=== PATIENT | female | born 1950 | race Caucasian/White ===

== ENCOUNTER → 2016-12-09 | Outpatient (CLI) | payer OTHER | LOC: FIMAGING 12:01 | PROVIDERS: ATTEND Emergency Medicine | DX: S73.191A Other sprain of right hip, initial encounter (principal); M16.0 Bilateral primary osteoarthritis of hip; M25.451 Effusion, right hip; M51.36 Other intervertebral disc degeneration, lumbar region; M47.896 Other spondylosis, lumbar region ==

== ENCOUNTER → 2017-06-20 | Outpatient (CLI) | payer OTHER | LOC: FIMAGING 09:56 | PROVIDERS: ATTEND Obstetrics & Gynecology | DX: Z12.31 Encounter for screening mammogram for malignant neoplasm of breast (principal) | CPT/HCPCS: G0202 ==

== ENCOUNTER → 2018-07-24 | Outpatient (CLI) | payer OTHER | LOC: FIMAGING 09:24 | PROVIDERS: ATTEND Obstetrics & Gynecology | DX: Z12.31 Encounter for screening mammogram for malignant neoplasm of breast (principal) ==

== ENCOUNTER → 2018-08-23 | Outpatient (CLI) | payer OTHER | LOC: FIMAGING 10:10 | PROVIDERS: ATTEND Orthopaedic Surgery | DX: Z01.818 Encounter for other preprocedural examination (principal); M16.0 Bilateral primary osteoarthritis of hip ==

== ENCOUNTER 2018-09-10 10:06 | Inpatient (IN) | payer OTHER ==
--- NOTE | 2018-09-10 06:29 | PDIAF ---
- Diagnosis Diagnosis: right hip djd Code Status: Full Code - Medication Management Discharge Medications: electronically signed and located in the Home Medication List. - Orders Services needed: Home Care, Physical Therapy Home Care Face to Face: I certify that this patient was under my care and that I had the required pohv-dj-hseh encounter meeting the encounter requirements on the discharge day. My findings support the fact that the patient is homebound as defined in Home Care Face to Face Continued: CMS Chapter 7 Medicare Benefits Manual 30.1.1 , The condition of the patient is such that there exists a normal inability to leave home and consequently, leaving home would require a considerable and taxing effort. Diet Recommendation: no restrictions on diet Diet Texture: Regular Texture Diet Additional Instructions: TOTAL JOINT ARTHROPLASTY DISCHARGE INSTRUCTIONS 1. Your surgeon follows the [facility] protocol for reducing your risk of DVT (blood clots) following surgery. Medication will be ordered to prevent blood clots. A sudden increase in calf pain and/or swelling could indicate a blood clot in your leg. If this occurs, please call your surgeon or his/her cosmetic sales assistant. An ultrasound of the leg may be necessary to diagnose a blood clot. If you have conditions that make you a higher risk for blood clots, your surgeon may use more aggressive ways to prevent them. Notify your surgeon if you think you are a high risk for blood clots. 2. Wear your white surgical stockings (KYLER hose) for 2 weeks. This decreases your swelling and may help prevent blood clots. It is ok to remove KYLER hose at night time to give your legs a break. 3. Swelling and bruising in the surgical leg is common. If you feel that it is excessive, please notify your surgeon. 4. Elevate your surgical leg with the ankle above the hip several times every day. Please keep the leg straight when you elevate by putting pillows under your foot. Do not put pillows under your knee. This will make being able to fully straighten more difficult. This is uncomfortable, but try to do it as much as possible. 5. For total knee replacements use compressive wrap on your knee for 3-5 days after surgery, then you can discontinue it. 6. Use a walker or crutches for 1-2 weeks. Progress your weight-bearing as tolerated. You may start to use a cane when you feel stable and safe. 7. You will receive physical therapy instructions in the hospital. Continue those exercises at home. There are additional exercises in the total joint booklet you were given before surgery. Outpatient physical therapy will begin 7- 10 days after surgery. Please schedule this in advance. 8. Use ice on your knee at least 3-5 times every day for 30 minutes. This helps reduce pain and swelling. Also use it at night before falling asleep. 9. Leave your surgical dressing in place for 2 weeks. Your dressing is water resistant, but not waterproof. Cover it with Saran Wrap or Kxtxx-x-Lcte before showering. You may shower as soon as you feel safe entering a shower. If you notice bleeding from your incision 2 or 3 days after surgery, please notify your surgeon. 10. Due to narcotics, decreased activity and altered diet, most patients experience constipation after surgery. Use czqq-dde-ykneikn stool softeners while you are on narcotics. 11. You may drive a car when you are comfortable bearing weight, have good muscular control of your leg and are off narcotics. This usually occurs 2-4 weeks after surgery, depending on which leg was operated on. 12. If there are questions not addressed here, please refer the [facility] book given for more information. If you still have questions, please contact your surgeon s office. 13. If you have a life-threatening emergency, please call 911 and go to the emergency room immediately. For non-life threatening emergencies, please call your physicians office for advice before going to the emergency room. - Follow Up Care Current Providers and Referrals: Marvin Zarate MD [Primary Care Provider] - Elio Fox MD [Medical Doctor] -
--- NOTE | 2018-09-10 06:29 | PDHPUP ---
History & Physical Update H&P update statement: This history and physical update is based on an assessment of the patient which was completed after admission or registration (within 24 hours), but prior to the surgery/procedure. H&P update: no change in patient's condition since H&P completed
[2018-09-10] MEDS ORDERED: LR 1,000 ML IV ONE (11:03)
[2018-09-10] MEDS ORDERED: PROPOFOL/EMULSION 500 MG/50 ML BOTTLE IV ONE (11:47)
[2018-09-10] MEDS ORDERED: LIDOCAINE 2% 5 ML SDV ONE (11:49)
[2018-09-10] MEDS ORDERED: TRANEXAMIC ACID 1,000 MG in NS 100 ML IV ONE (12:00)
[2018-09-10] MEDS ORDERED: ACETAMINOPHEN 325 MG TAB PO ONE (12:00)
[2018-09-10] MEDS ORDERED: ROPIVACAINE 0.2% 80 MG, EPINEPHrine 0.2 MG, KETOROLAC TROMETHAMINE 30 MG, morphINE 10 M... IU ONE (12:00)
[2018-09-10] MEDS ORDERED: FAMOTIDINE 20 MG TAB PO ONE (12:00)
[2018-09-10] MEDS ORDERED: ceFAZolin 2 GM/DEXTROSE 100 ML IV ONE (12:00)
[2018-09-10] MEDS ORDERED: ceFAZolin 1 GM/5 ML SYR ONE (12:05)
[2018-09-10] MEDS ORDERED: BUPIVACAINE/DEXTROSE 7.5MG/ML 2 ML SPINAL AMP SP ONE (12:24)
[2018-09-10] MEDS ORDERED: MIDAZOLAM 2 MG/2 ML VIAL ONE ×2 (12:53→13:00)
[2018-09-10] MEDS ORDERED: MIDAZOLAM 2 MG/2 ML VIAL IVP ONE (12:53)
--- NOTE | 2018-09-10 12:54 | PDANEPAE ---
ANE History of Present Illness right MARIELOS ANE Past Medical History - Cardiovascular History Hx Hypertension: No Hx Arrhythmias: No Hx Chest Pain: No Hx Coronary Artery / Peripheral Vascular Disease: No Hx CHF / Valvular Disease: No Hx Palpitations: No - Pulmonary History Hx COPD: No Hx Asthma/Reactive Airway Disease: No Hx Recent Upper Respiratory Infection: No Hx Oxygen in Use at Home: No Hx Sleep Apnea: No Sleep Apnea Screening Result - Last Documented: Negative - Neurologic History Hx Cerebrovascular Accident: No Hx Seizures: No Hx Dementia: No - Endocrine History Hx Diabetes: No - Renal History Hx Renal Disorders: No - Liver History Hx Hepatic Disorders: No - Neurological & Psychiatric Hx Hx Neurological and Psychiatric Disorders: No - Cancer History Hx Cancer: No - Congenital Disorder History Hx Congenital Disorders: No - GI History Hx Gastrointestinal Disorders: No - Other Health History Other Health History: none - Chronic Pain History Chronic Pain: No - Surgical History Prior Surgeries: bilat oophorectomy. /d&c's ANE Review of Systems Review of systems is: negative Review of Systems: - Exercise capacity METS (RN): 5 METS ANE Patient History - Allergies Allergies/Adverse Reactions: Sulfa (Sulfonamide Antibiotics) Allergy (Verified 09/10/18 11:22) high fevers - Home Medications Home medications: home medication list seen and reviewed Home Medications: NK [No Known Home Meds] 08/27/18 [Last Taken Unknown] - NPO status NPO Since - Liquids (Date): 09/10/18 NPO Since - Liquids (Time): 09:15 NPO Since - Solids (Date): 09/09/18 NPO Since - Solids (Time): 19:00 - Anes Hx Anes Hx: awareness under anesthesia - Smoking Hx Smoking Status: Former smoker - Alcohol Use Alcohol Use: None - Family Anes Hx Family Hx Anesthesia Complications: none ANE Labs/Vital Signs - Vital Signs Blood Pressure: 120/80 Heart Rate: 86 Respiratory Rate: 18 O2 Sat (%): 94 Height: 167.64 cm Weight: 65.771 kg ANE Physical Exam - Airway Neck exam: FROM Mallampati Score: Class 2 Mouth exam: normal dental/mouth exam - Pulmonary Pulmonary: no respiratory distress - Cardiovascular Cardiovascular: regular rate and rhythym - ASA Status ASA Status: II ANE Anesthesia Plan Anesthesia Plan: spinal
[2018-09-10] MEDS ORDERED: fentaNYL 100 MCG/2 ML INJ ONE (13:01)
[2018-09-10] MEDS ORDERED: ePHEDrine SULFATE 25 MG/5 ML SYR ONE (13:23)
[2018-09-10] MEDS ORDERED: ONDANSETRON 4 MG/2 ML VIAL IVP PRN ×2 (13:41→14:33)
[2018-09-10] MEDS ORDERED: HYDROCODONE/APAP 5/325 TAB PO PRN (13:41)
[2018-09-10] MEDS ORDERED: PROMETHAZINE HCL 25 MG/ML INJ IVP PRN ×2 (13:41→14:33)
[2018-09-10] MEDS ORDERED: HYDROmorphONE/DILAUDID 2 MG/ML INJ IVP PRN (13:41)
[2018-09-10] MEDS ORDERED: LR 500 ML IV PRN (13:41)
[2018-09-10] MEDS ORDERED: DIAZEPAM 5 MG/ML 1 ML SYR IVP PRN (13:41)
[2018-09-10] MEDS ORDERED: NALOXONE HCL 0.4 MG/ML INJ IVP PRN (13:41)
[2018-09-10] MEDS ORDERED: oxyCODONE IR 5 MG TAB PO PRN (13:41)
[2018-09-10] MEDS ORDERED: ACETAMINOPHEN 500 MG TAB PO PRN (13:41)
[2018-09-10] MEDS ORDERED: fentaNYL 100 MCG/2 ML INJ IVP PRN (13:41)
[2018-09-10] MEDS ORDERED: ALBUTEROL 3 ML DEYVIAL IH PRN (13:41)
--- NOTE | 2018-09-10 13:41 | POSTANESTH ---
Post Anesthetic Evaluation Cardiovascular Status: Normal, Stable Respiratory Status: Normal, Stable Level of Consciousness/Mental Status: Can Participate in Eval, Alert and Oriented Pain Control: Adequate, Prn Tx Ordered Nausea/Vomiting Control: Adequate, Prn Tx Ordered Complications Possibly Related to Anesthesia: None Noted
[2018-09-10] MEDS ORDERED: PHENYLEPHRINE HCL 100 MCG/ML SYR ONE ×2 (14:26)
[2018-09-10] MEDS ORDERED: PROMETHAZINE HCL 25 MG SUPPR PR PRN (14:33)
[2018-09-10] MEDS ORDERED: ONDANSETRON DISINTEGRATING 4 MG TAB PO PRN (14:33)
[2018-09-10] MEDS ORDERED: MAGNESIUM HYDROXIDE 30 ML UDCUP PO PRN (14:33)
[2018-09-10] MEDS ORDERED: POLYETHYLENE GLYCOL 3350 17 GM PKT PO PRN (14:33)
[2018-09-10] MEDS ORDERED: METOCLOPRAMIDE 10 MG/2 ML VIAL IVP PRN (14:33)
[2018-09-10] MEDS ORDERED: TEMAZEPAM 15 MG CAP PO PRN (14:33)
[2018-09-10] MEDS ORDERED: BISACODYL 10 MG SUPP PR PRN (14:33)
[2018-09-10] MEDS ORDERED: CYCLOBENZAPRINE 10 MG TAB PO PRN (14:33)
[2018-09-10] MEDS ORDERED: diphenhydrAMINE 25 MG CAP PO PRN (14:33)
[2018-09-10] MEDS ORDERED: LACTULOSE 20 GM/30 ML UDCUP PO PRN (14:33)
[2018-09-10] MEDS ORDERED: DIPHENOXYLATE/ATROPINE LOMOTIL 1 TAB PO PRN (14:33)
--- NOTE | 2018-09-10 14:33 | POSTOPPROG ---
Post Op Note Date of Operation: 09/10/18 Surgeon: Elio Fox Bank Consultant: dov Anesthesiologist: govind Anesthesia: Spinal Pre-op Diagnosis: right hip djd Post-op Diagnosis: same Indication: same Procedure: right troy Inf/Abcess present in the surg proc area at time of surgery?: No Depth: Deep Incisional (Fascial) EBL: 100-500 Drains: Hemovac
--- NOTE | 2018-09-10 15:39 | PDMN ---
Medical Necessity Medical necessity[place] [facility] [place]thro[place]: 68 yo s/p R MARIELOS, [facility] IP only
[2018-09-10] MEDS: LR 1,000 ML IV SCH (16:39)
[2018-09-10] MEDS: ACETAMINOPHEN 325 MG TAB PO SCH ×2 (17:41→23:12)
[2018-09-10] MEDS: oxyCODONE IR 5 MG TAB PO PRN ×2 (17:41→20:28)
[2018-09-10] MEDS: FAMOTIDINE 20 MG TAB PO SCH (20:17)
[2018-09-10] MEDS: ASPIRIN 325 MG TAB PO SCH (20:17)
[2018-09-10] MEDS: SENNOSIDES/DOCUSATE SODIUM TAB PO SCH (20:17)
[2018-09-10] MEDS: ceFAZolin 2 GM/DEXTROSE 100 ML IV SCH (20:17)
[2018-09-10] MEDS: TRANEXAMIC ACID 650 MG TAB PO SCH (23:12)
[2018-09-11] MEDS: ceFAZolin 2 GM/DEXTROSE 100 ML IV SCH (04:35)
[2018-09-11] MEDS: ACETAMINOPHEN 325 MG TAB PO SCH ×2 (05:23→12:03)
[2018-09-11] MEDS: TRANEXAMIC ACID 650 MG TAB PO SCH ×2 (05:23→14:18)
--- NOTE | 2018-09-11 07:53 | PDIAF ---
- Diagnosis Diagnosis: right hip djd Code Status: Full Code - Medication Management Discharge Medications: electronically signed and located in the Home Medication List. - Orders Services needed: Home Care, Physical Therapy Home Care Face to Face: I certify that this patient was under my care and that I had the required nrqr-ur-oalf encounter meeting the encounter requirements on the discharge day. My findings support the fact that the patient is homebound as defined in Home Care Face to Face Continued: CMS Chapter 7 Medicare Benefits Manual 30.1.1 , The condition of the patient is such that there exists a normal inability to leave home and consequently, leaving home would require a considerable and taxing effort. Diet Recommendation: no restrictions on diet Diet Texture: Regular Texture Diet Additional Instructions: TOTAL JOINT ARTHROPLASTY DISCHARGE INSTRUCTIONS 1. Your surgeon follows the [facility] protocol for reducing your risk of DVT (blood clots) following surgery. Medication will be ordered to prevent blood clots. A sudden increase in calf pain and/or swelling could indicate a blood clot in your leg. If this occurs, please call your surgeon or his/her commissary assistant. An ultrasound of the leg may be necessary to diagnose a blood clot. If you have conditions that make you a higher risk for blood clots, your surgeon may use more aggressive ways to prevent them. Notify your surgeon if you think you are a high risk for blood clots. 2. Wear your white surgical stockings (KYLER hose) for 2 weeks. This decreases your swelling and may help prevent blood clots. It is ok to remove KYLER hose at night time to give your legs a break. 3. Swelling and bruising in the surgical leg is common. If you feel that it is excessive, please notify your surgeon. 4. Elevate your surgical leg with the ankle above the hip several times every day. Please keep the leg straight when you elevate by putting pillows under your foot. Do not put pillows under your knee. This will make being able to fully straighten more difficult. This is uncomfortable, but try to do it as much as possible. 5. For total knee replacements use compressive wrap on your knee for 3-5 days after surgery, then you can discontinue it. 6. Use a walker or crutches for 1-2 weeks. Progress your weight-bearing as tolerated. You may start to use a cane when you feel stable and safe. 7. You will receive physical therapy instructions in the hospital. Continue those exercises at home. There are additional exercises in the total joint booklet you were given before surgery. Outpatient physical therapy will begin 7- 10 days after surgery. Please schedule this in advance. 8. Use ice on your knee at least 3-5 times every day for 30 minutes. This helps reduce pain and swelling. Also use it at night before falling asleep. 9. Leave your surgical dressing in place for 2 weeks. Your dressing is water resistant, but not waterproof. Cover it with Saran Wrap or Ryyuo-k-Hrla before showering. You may shower as soon as you feel safe entering a shower. If you notice bleeding from your incision 2 or 3 days after surgery, please notify your surgeon. 10. Due to narcotics, decreased activity and altered diet, most patients experience constipation after surgery. Use pvdx-njy-mzdytrn stool softeners while you are on narcotics. 11. You may drive a car when you are comfortable bearing weight, have good muscular control of your leg and are off narcotics. This usually occurs 2-4 weeks after surgery, depending on which leg was operated on. 12. If there are questions not addressed here, please refer the [facility] book given for more information. If you still have questions, please contact your surgeon s office. 13. If you have a life-threatening emergency, please call 911 and go to the emergency room immediately. For non-life threatening emergencies, please call your physicians office for advice before going to the emergency room. - Follow Up Care Current Providers and Referrals: Marvin Zarate MD [Primary Care Provider] - Elio Fox MD [Medical Doctor] -
--- NOTE | 2018-09-11 07:54 | SOAPPROG ---
SOAP Progress Note Assessment/Plan: Assessment: s/p troy Plan:stable d/c home after cleared by pt dvt precautions reviewed f/u at two weeks 09/11/18 07:53 Subjective: doing well mild pain only no cp or sob monique po Objective: Vital Signs Temp Pulse Resp BP Pulse Ox 36.6 C 77 16 95/47 L 96 09/11/18 04:39 09/11/18 04:39 09/11/18 04:39 09/11/18 04:39 09/11/18 04:39 Laboratory Results 09/11/18 04:35 09/10/18 09/11/18 09/12/18 05:59 05:59 05:59 Intake Total 3325 Output Total 1325 Balance 2000 dressing intact intact pf, df, ehl toes warm and pink neg homans toño xrays anatomic, no fx or lucency ICD10 Worksheet Patient Problems: Problems Problem Status Onset Hip arthritis Acute - ICD10 Problem Qualifiers (1) Hip arthritis
[2018-09-11] MEDS: SENNOSIDES/DOCUSATE SODIUM TAB PO SCH (08:46)
[2018-09-11] MEDS: FAMOTIDINE 20 MG TAB PO SCH (08:46)
[2018-09-11] MEDS: ASPIRIN 325 MG TAB PO SCH (08:46)
[2018-09-11] MEDS: oxyCODONE IR 5 MG TAB PO PRN (08:47)
[2018-09-11] MEDS: LR 1,000 ML IV SCH (08:51)
--- NOTE | 2018-09-11 10:56 | ASMTDCNOTE ---
Case Management Discharge Discharge Order Complete? Answers: Yes Patient to Obtain Answers: Independently Medications Transportation Arranged Answers: Family/Friends Family Notified Answers: Yes Discharge Comments Notes: Patient discharged home with [facility] PT. Son to transport home. Date Signed: 09/11/2018 10:55 AM Electronically Signed By:Shruthi Gallo RN
--- NOTE | 2018-09-11 10:56 | ASMTLACE ---
JOSE Length of stay for Answers: 1 day current admission Acuity / Level of Answers: Yes Care: Did the patient have an inpatient admission? # of Emergency department Answers: 0 visits in the last 6 months Score: 4 Date Signed: 09/11/2018 10:55 AM Electronically Signed By:Shruthi Gallo RN
[2018-09-11 11:15] VITALS: BP 101/48
[2018-09-11] MEDS ORDERED: HYDROCODONE/APAP 5/325 TAB ONE (12:50)
[2018-09-11] MEDS ORDERED: HYDROCODONE/APAP 5/325 TAB PO PRN (12:52)
--- NOTE | 2018-09-12 07:19 | GDS ---
[f rep st] DISCHARGE SUMMARY ADMISSION DIAGNOSIS: Right hip degenerative joint disease. DISCHARGE DIAGNOSIS: Right hip degenerative joint disease. PROCEDURE: Right total hip arthroplasty. HISTORY OF PRESENT ILLNESS: The patient is a 68-year-old woman with end-stage arthritis to her right hip. She presents for elective right total hip arthroplasty. HOSPITAL COURSE: The patient was admitted overnight after uncomplicated total hip arthroplasty. She tolerated the procedure well. She quickly progressed with physical therapy. At the time of dischar ge, she is tolerating an oral diet. Pain is well controlled on oral medicines. She is voiding witho ut difficulty. Dressing is clean, dry, and intact. No calf swelling or tenderness. X-rays are stab le with anatomic alignment, concentric reduction. DISCHARGE ACTIVITY: Weightbearing as tolerated. Anterior hip precautions. Keep the dressing clean, dry, and intact. FOLLOWUP: 2 weeks. Seek attention for increasing redness, swelling, drainage, discharge, or other f ocal complaints. DISCHARGE MEDICATIONS: Osgood 5/325 one to two every 6 hours p.r.n. pain, aspirin 325 mg p.o. daily f or 6 weeks. /[id number]/MODL
--- NOTE | 2018-09-12 07:29 | GOP ---
[f rep st] OPERATIVE REPORT DATE OF OPERATION: 09/10/2018 SURGEON: Elio Fox MD ONLINE MERCHANDISING COORDINATOR: Devin Cheney, surgical clinical reviewer, was a medical necessity for the entirety of the case. PREOPERATIVE DIAGNOSIS: Right hip degenerative joint disease. POSTOPERATIVE DIAGNOSIS: Right hip degenerative joint disease. PROCEDURE PERFORMED: Right total hip arthroplasty. FINDINGS: SPECIMENS: To Pathology, the femoral head. INDICATIONS: The patient is a 68-year-old woman with end-stage arthritis to her right hip. Clinical and radiographic features are consistent with this. She has failed all attempts at conservative man agement. I have, therefore, recommended operative intervention. I have outlined the surgical proced ure, risks, benefits, and alternatives, and she wishes to proceed. Appropriate consent was signed an d placed in patient's chart. DESCRIPTION OF PROCEDURE: The patient was identified in the preanesthesia area. The right hip clear ly demarcated as the operative site with indelible marker. She was given 2 g of Ancef intravenously en route to the operative suite. In the OR, spinal anesthetic was placed and she was positioned in t he supine position. All bony prominences were well padded. Attention was turned to the pelvis and lower extremities, which were sterilely prepped and draped in usual fashion. Appropriate time-out procedure was carried out. Attention was first turned to the left hemipelvis. A 2 cm incision was made over the iliac crest. T hree pins were then placed and the pelvic reference array affixed. Attention was turned to the right hip and an anterior approach was made. Thick subcutaneous flaps we re elevated. The fascia of the tensor fascia eliane was opened in the origin of its fibers, the tensor muscle retracted laterally. The underlying vascular structures were identified, ligated, cauterized , and transected. The rectus was elevated off the capsule. Retractors were placed in an extracapsul ar position. A T capsulotomy was made. Retractors then placed into an intracapsular position. There were gross b bonnie changes consistent with arthritis. Acetabular checkpoint was placed, a bony wedge withdrawn from the femoral neck, and the remaining femoral head removed. The acetabular labrum was sharply excised. The bony landmarks were entered into the computer. Using the MAKOplasty robot, resection was made with a 52 mm acetabular reamer. An osteophyte over the ant erior aspect of the acetabular labrum was sharply excised and a 52 mm acetabular shell was then impac wade, confirmed to be fully seated with an opening angle of 40 degrees and anteversion of 20 degrees. A 0-degree X3 liner was then placed, confirmed to be fully seated. Attention was then turned to the femur, which was delivered through the use of extension of the table , external rotation of the leg, and soft tissue releases. The proximal canal was opened, serial broa cordelia carried out to a size 5 stem. Trial reduction was carried out and ultimately a size 5 final implant stem was then impacted, confirm ed to be fully seated. Additional trialing was carried out and a 36 mm +2.5 mm Biolox head was selec wade as this restored leg lengths to equal. Stability profile demonstrated full extension and external rotation to 90 degrees without instability and flexion 90 degrees with internal rotation of 60 degrees with no subluxation or impingement. The wound was copiously irrigated, a 10-English drain placed, tissue injected with a joint cocktail of ropivacaine, Toradol, and epinephrine. The tensor closed using 0 Vicryl, subcutaneous tissue using 2-0 Monocryl, and the skin was stapled. Sterile dressing was applied. The patient was awakened and taken to the recovery in good, stable condition. TOTAL TOURNIQUET TIME: None. COMPLICATIONS: None. IMPLANTS: [place] Trident II acetabular shell, size 52 mm, Trident X3 0-degree polyethylene insert 3 6 mm, Accolade II 127-degree neck angle hip stem size 5, and a Biolox ceramic head 36 mm, +2.5 mm nec k length. DISPOSITION: To the recovery room, then the floor. /[id number]/MODL
--- NOTE | 2018-09-12 10:27 | ASDISCHSUM ---
Discharge Information Plan Status: Medically Cleared to Leave: Discharge Date:09/11/2018 03:29 PM CM D/C Disposition: ADT D/C Disposition:Home Health Service Projected Discharge Date:09/11/2018 11:00 AM Transportation at D/C: Discharge Delay Reason: Follow-Up Date:09/11/2018 11:00 AM Discharge Slot: Final Diagnosis: Placement Information Referral Type:*Home Health Care Services Referral ID:[id number] Provider Name:[facility] Address 1:[address] [place] Address 2: [facility]:[place] Selection Factors: State:[place] Patient Contact Information Contact Name:KRISH Relationship:Son Address: Work Phone: City:[place] Alternate Phone: [facility]/[place] Code:[place] Email: Financial Information Financial Class:Medicare Primary Plan Desc:MEDICARE INPATIENT Primary Plan Number:[id number] Secondary Plan Desc:[id number] Secondary Plan Number:[id number] Assessment Information LACE LACE Length of stay for Answers: 1 day current admission Acuity / Level of Answers: Yes Care: Did the patient have an inpatient admission? # of Emergency department Answers: 0 visits in the last 6 months Score: 4 Date Signed: 09/11/2018 10:55 AM Electronically Signed By:Shruthi Gallo RN Case Management Discharge Plan Note Case Management Discharge Discharge Order Complete? Answers: Yes Patient to Obtain Answers: Independently Medications Transportation Arranged Answers: Family/Friends Family Notified Answers: Yes Discharge Comments Notes: Patient discharged home with [facility]. Son to transport home. Date Signed: 09/11/2018 10:55 AM Electronically Signed By:Shruthi Gallo RN Intervention Information
== END 2018-09-11 15:29 | disposition home health service (06) | DRG 470 ==
LOC: F3N 10:49
PROVIDERS: ADMIT Orthopaedic Surgery; ATTEND Orthopaedic Surgery
PROC: 0SR904A Replacement of Right Hip Joint with Ceramic on Polyethylene Synthetic Substitute, Uncemented, Open Approach (ICD-10-PCS; principal; 2018-09-10 13:45)
DX: M16.11 Unilateral primary osteoarthritis, right hip (principal); E78.5 Hyperlipidemia, unspecified; E55.9 Vitamin D deficiency, unspecified; Z87.891 Personal history of nicotine dependence
CPT/HCPCS: 97161-GP; 97165-GO; 97530-GO; 97535-GO; J0171; J0690; J1885; J2250; J2270; J2370; J2704; J2795; J3010

== ENCOUNTER → 2018-10-24 | Outpatient (CLI) | payer OTHER | LOC: BMCIMAGING 09:28 | PROVIDERS: ATTEND Orthopaedic Surgery | DX: Z47.1 Aftercare following joint replacement surgery (principal); Z96.641 Presence of right artificial hip joint ==

== ENCOUNTER → 2018-12-05 | Outpatient (CLI) | payer OTHER | LOC: BMCIMAGING 13:29 | PROVIDERS: ATTEND Orthopaedic Surgery | DX: Z47.1 Aftercare following joint replacement surgery (principal); Z96.641 Presence of right artificial hip joint; M16.12 Unilateral primary osteoarthritis, left hip ==